=== PATIENT | female | born 1970 | race African-American/Black ===

== ENCOUNTER 2020-08-22 18:38 | Inpatient (IN) | payer OTHER ==
[~2020-08-22] VITALS: Ht 165.1 cm; Wt 106.1 kg
[2020-08-22 19:36] LABS: COLLECTION METHOD CLEAN CATCH
[2020-08-22 19:42] LABS: BASO % 0.1 % (0.0-2.0); GRAN # 9.4 (1.4-6.5); GRAN % 87.1 % (42.2-75.2); HEMATOCRIT 40.9 % (37.0-47.0); HEMOGLOBIN 12.7 g/dl (12.5-16.0); LYMPH # 1.1 (1.2-3.4); LYMPH % 9.7 % (20.0-51.0); MEAN CELL VOLUME 84 fl (80.0-100.0); MEAN CORPUSCULAR HEMOGLOBIN 26 pg (27.0-31.0); MEAN CORPUSCULAR HGB CONC 31 g/dl (33.0-37.0); MEAN PLATELET VOLUME 11.9 fl (7.4-10.4); MONO # 0.3 (0.1-0.6); MONO % 2.6 % (1.7-9.3); PLATELET COUNT 253 K/mm3 (130-400); RED BLOOD COUNT 4.86 M/mm3 (4.10-5.30); REDCELL DISTRIBUTION WIDTH-CV 14.3 % (11.5-14.5)
[2020-08-22 19:47] LABS: MUCOUS Present /lpf; PH 5 (5-8); URINE APPEARANCE Cloudy; URINE BACTERIA Rare /hpf; URINE BILIRUBIN Negative (NEGATIVE); URINE BLOOD 1+ (NEGATIVE); URINE COLOR Yellow; URINE GLUCOSE Negative (NEGATIVE); URINE KETONE Negative (NEGATIVE); URINE LEUKOCYTE ESTERASE 3+ (NEGATIVE); URINE NITRATE Negative (NEGATIVE); URINE PROTEIN(semi-quant) 2+ (NEGATIVE); URINE UROBILINOGEN Negative (NEGATIVE)
[2020-08-22 19:51] LABS: ALANINE AMINOTRANSFERASE 29 U/L (4-34); ALBUMIN 4.2 gm/dL (3.5-5.0); ALKALINE PHOSPHATASE 137 U/L (50-136); ANION GAP 8 mmol/L (7-16); AST,SGOT 50 U/L (15-37); BILIRUBIN,TOTAL 0.4 mg/dL (0.0-1.0); BLOOD UREA NITROGEN 15 mg/dL (7-17); CALCIUM 9.1 mg/dL (8.4-10.2); CARBON DIOXIDE 27 mmol/L (22-30); CHLORIDE 106 mmol/L (98-107); CREATININE, serum 0.93 (0.52-1.25); GLUCOSE 137 mg/dL (74-106); POTASSIUM 3.6 mmol/L (3.4-5.0); SODIUM 142 mmol/L (137-145); TOTAL PROTEIN 7.9 gm/dL (6.4-8.2)
[2020-08-22 20:04] LABS: TROPONIN-I < 0.012 ng/mL (0.000-0.035)
[2020-08-22] MEDS ORDERED: K-TAB20 PO (21:05)
[2020-08-22] MEDS ORDERED: CYANOCOBAL1000 MCG/M IM (21:06)
[2020-08-22] MEDS ORDERED: ATARAX50 MG PO (21:06)
[2020-08-22] MEDS ORDERED: SYNTHROID0.075 MG/T PO (21:07)
[2020-08-22] MEDS ORDERED: CELEXA10 MG PO (21:07)
[2020-08-22] MEDS ORDERED: NORVASC 10MG10 MG PO (21:07)
[2020-08-22] MEDS ORDERED: PRILOSEC 20MG20 MG PO (21:08)
[2020-08-22] MEDS ORDERED: MULTI-VITAMIN W1 TA2 PO (21:09)
[2020-08-22] MEDS ORDERED: DULCOLAX STOOL100 MG PO (21:09)
[2020-08-22 22:16] VITALS: BP 130/89; PULSE 78; TEMP 99
[2020-08-22 23:59] VITALS: BP 158/94; PULSE 80; TEMP 99.4
[2020-08-23 00:11] LABS: ARTERIAL BLD GAS O2 SATURATION 93.4 % (92-100); ARTERIAL BLD GAS TCO2 CT 23.2; ARTERIAL BLOOD GAS BASE EXCESS -2.2 (-2-2); ARTERIAL BLOOD GAS HCO3 22.1 meq/L (22-26); ARTERIAL BLOOD GAS PCO2 36.1 mmHg (35-45); ARTERIAL BLOOD GAS PO2 67.9 mmHg (80-100)
[2020-08-23 03:24] VITALS: PULSE 74; TEMP 100.1
[2020-08-23 05:38] VITALS: BP 143/83; PULSE 70; TEMP 98.8
[2020-08-23 06:49] LABS: BASO % 0.1 % (0.0-2.0); GRAN # 9.7 (1.4-6.5); GRAN % 86.9 % (42.2-75.2); HEMOGLOBIN 10.9 g/dl (12.5-16.0); LYMPH % 9.2 % (20.0-51.0); MEAN CELL VOLUME 84 fl (80.0-100.0); MEAN CORPUSCULAR HEMOGLOBIN 26 pg (27.0-31.0); MEAN CORPUSCULAR HGB CONC 31 g/dl (33.0-37.0); MEAN PLATELET VOLUME 11.6 fl (7.4-10.4); MONO # 0.3 (0.1-0.6); PLATELET COUNT 228 K/mm3 (130-400); RED BLOOD COUNT 4.21 M/mm3 (4.10-5.30); REDCELL DISTRIBUTION WIDTH-CV 14.1 % (11.5-14.5)
[2020-08-23 06:55] LABS: ALBUMIN 3.3 gm/dL (3.5-5.0); BILIRUBIN,TOTAL 0.4 mg/dL (0.0-1.0); CALCIUM 8.5 mg/dL (8.4-10.2); CREATININE, serum 0.73 (0.52-1.25); POTASSIUM 3.7 mmol/L (3.4-5.0); TOTAL PROTEIN 6.7 gm/dL (6.4-8.2)
[2020-08-23 07:10] LABS: HEMATOCRIT 35.5 % (37.0-47.0)
[2020-08-23 07:33] VITALS: BP 154/104; PULSE 79; TEMP 100
--- NOTE | 2020-08-23 11:27 | NUR ---
The patient is positive for COVID. SW attempted to contact the patient's room phone to discuss discharge plan. She did not answer. DEDRA then contacted the patient's , Joseph (ph#[phone]), to complete intake. The patient lives in [place] with Joseph and their 26-year-old daughter and 12-year-old son. He reports independence with ADLs and does not have any DME. The patient's primary care provider is ANA Young and she receives her medications from [facility] in [place]. Joseph reports no difficulties obtaining her meds. The patient does not have a DPOA-HC. Joseph reports that the plan is for the patient to return back home upon discharge. The patient is currently on 4 liters of oxygen. SW to continue to monitor.
--- NOTE | 2020-08-23 12:05 | NUR ---
Chaplain escobedo for patient while standing down the thornton.
[2020-08-23 12:18] VITALS: BP 130/74; PULSE 79; TEMP 99.1
--- NOTE | 2020-08-23 12:50 | NUR ---
THIS NURSE ENTERED ROOM. GENERAL OFFICE WORKER OBTAINING VITALS AT THE BEDSIDE. GENERAL OFFICE WORKER REPORTS THAT THE PATIENT WAS UP TO THE BATHROOM WITHOUT HER OXYGEN ON THE NASAL CANNULA COULDNT REACH TO THE BATHROOM. GENERAL OFFICE WORKER PLACED NASAL CANNULA BACK ON PATIENT. O2 SAT UPON TIME OF ENTRY TO THE ROOM WAS 83%, O2 FLOW TURNED UP. RESIPRATORY THERAPY CALLED. NASAL CANNULA SWITCHED OUT TO OXY MASK AND TURNED TO 12L. OXYGEN SAT INCREASED TO 89-91%. RESPIRATORY THERAPY ENTERED ROOM. OXYMASK EXCHANGED TO A HIGH FLOW HUMIDIFIED NASAL CANNULA AND PATIENT IS NOW SATING AT 92-93% ON 8L. PATIENT GIVEN TYLENOL AND ROBOTUSSIN. PATIENT RESTING IN BED.
[2020-08-23 15:54] VITALS: BP 140/82; PULSE 76; TEMP 98.2
--- NOTE | 2020-08-23 16:32 | NUR ---
DISTRIBUTED GENERATION PROJECT MANAGER NOTIFIED THIS NURSE THAT THE PATIENTS OXYGEN SATURATION WAS 87% ON 10L HIGH FLOW NASAL CANNULA. RT CALLED AND NOTIFIED. OXYGEN INCREASED TO 15L VIA HIGH FLOW NASAL CANNULA. TYLENOL AND ROBOTUSSIN GIVEN FOR CHEST PAIN AND COUGH. O2 SAT CAME UP TO 90-92%.
--- NOTE | 2020-08-23 16:35 | NUR ---
PATIENT O2 SAT UP TO 93-94% ON 15L VIA HIGH FLOW NASAL CANNULA PRIOR TO THIS NURSE LEAVING THE ROOM.
[2020-08-23 19:04] VITALS: BP 146/92; PULSE 82; TEMP 98.5
--- NOTE | 2020-08-23 19:17 | NUR ---
Contacted by PRODUCTION CONTROL SUPERVISOR patient 84% on 15 liters of oxygen. Hospitalist and respiratory contacted. Stat ABG obtain.
[2020-08-23 19:22] LABS: ARTERIAL BLD GAS O2 SATURATION 89.3 % (92-100); ARTERIAL BLD GAS TCO2 CT 22.9; ARTERIAL BLOOD GAS BASE EXCESS -2.2 (-2-2); ARTERIAL BLOOD GAS HCO3 21.8 meq/L (22-26); ARTERIAL BLOOD GAS PO2 54.7 mmHg (80-100); ARTERIAL BLOOD GAS pH 7.41 (7.35-7.45)
--- NOTE | 2020-08-23 21:13 | NUR ---
Updated regarding patient. All questions answered. Denies other needs and questions at this time.
--- NOTE | 2020-08-23 22:35 | NUR ---
Resting in bed. Assessment complete. Lungs clear. Heart sounds normal. Bowels active x4. Pulses present throughout. No edema noted. Right radial site free of complications. INT right AC without complications. Denies pain. Denies needs at this time. Call light in reach.
[2020-08-24] VITALS (9 sets, daily range): BP systolic 128–174; BP diastolic 86–97; PULSE 64–79; TEMP 98.4–100.1
--- NOTE | 2020-08-24 00:08 | NUR ---
Up to restroom and returned to bed. Respiratory in room while patient ambulating. Increased to 50 liters at 90% fiO2. Patient cough and increased work of breath while up. Resolved once laying in bed. Respiratory to adjust airvo as needed.
--- NOTE | 2020-08-24 01:06 | NUR ---
Patient given PRN hydralazine and tylenol at this time. Call light in reach.
--- NOTE | 2020-08-24 02:38 | NUR ---
Patient continues on airvo. Patient requested "something to sleep." VIANEY Acosta ordered melatonin. Given to patient. Also having temps, currently 100.1. Per Karla recheck at 0330 and given ibuprofen if needed. Will monitor.
--- NOTE | 2020-08-24 04:46 | NUR ---
Resting in bed. Denies needs. Call light in reach.
--- NOTE | 2020-08-24 06:20 | NUR ---
Patient remains on airvo at 50 liters and 80% fiO2. Tolerating well. Denies needs this Am. Call light in reach.
[2020-08-24 06:38] LABS: BASO % 0.2 % (0.0-2.0); GRAN # 10.1 (1.4-6.5); GRAN % 87.3 % (42.2-75.2); HEMOGLOBIN 11.1 g/dl (12.5-16.0); LYMPH % 8.3 % (20.0-51.0); MEAN CELL VOLUME 85 fl (80.0-100.0); MEAN CORPUSCULAR HEMOGLOBIN 26 pg (27.0-31.0); MEAN CORPUSCULAR HGB CONC 31 g/dl (33.0-37.0); MEAN PLATELET VOLUME 12.1 fl (7.4-10.4); MONO # 0.4 (0.1-0.6); MONO % 3.5 % (1.7-9.3); PLATELET COUNT 246 K/mm3 (130-400); RED BLOOD COUNT 4.21 M/mm3 (4.10-5.30); REDCELL DISTRIBUTION WIDTH-CV 14.3 % (11.5-14.5)
[2020-08-24 06:39] LABS: HEMATOCRIT 35.6 % (37.0-47.0)
[2020-08-24 06:53] LABS: CALCIUM 8.4 mg/dL (8.4-10.2); CREATININE, serum 0.67 (0.52-1.25); POTASSIUM 3.2 mmol/L (3.4-5.0)
--- NOTE | 2020-08-24 07:04 | NUR ---
Report given to ROSELIA Hannah
--- NOTE | 2020-08-24 10:02 | NUR ---
Patient alert, oriented, appesr drowsy during assessment. Patient refuse breakfast. said she is tired and would like to rest. RN received verbal consent from patient to request for COVID19 result from [facility]. Covid19 faxed in, document filed in patient's chart. Patient resting in bed at this time.
--- NOTE | 2020-08-24 12:31 | NUR ---
Dr Negrete ordered PICC line placement, Type and screen for convalescent plasma transfusion.
--- NOTE | 2020-08-24 12:33 | NUR ---
Received order from Dr Ortiz to start patient on potassium protocol. am k+ level was 3.2. potassium ordered per protocol.
--- NOTE | 2020-08-24 17:25 | NUR ---
Patient report low appetite, offered patient milk shake, patient agreed. milk shake ordered for patient. Patient resting in bed at the moment. patient had an episode of SOB after attempt to walk to the bathroom/bedside commode. O2 sat was 88, saturation improved to 93-94% after patient returned to bed and rested for a while.
--- NOTE | 2020-08-24 17:43 | NUR ---
Dr sterling discontinued tele
--- NOTE | 2020-08-24 20:30 | NUR ---
Initial shift assessment done- states remains SOB with any exertion, now on airvo, 45L.68%,,, sats 94-95%,resting well tonight-cough present- will give cough medicine when time, no other requests, does not want any of her supper but did drink a vanilla shake. PICC to ASHLY.
[2020-08-25] VITALS (9 sets, daily range): BP systolic 120–157; BP diastolic 71–92; PULSE 57–78; TEMP 98.1–98.8
--- NOTE | 2020-08-25 05:17 | NUR ---
Quiet night-- has been resting well tonight-- VSS, o2 sats 97-99% on the airvo 45L,,68%
--- NOTE | 2020-08-25 06:19 | NUR ---
Did get up to bathroom about 30 minutes ago sats are 92% now on the Airvo 45L/68%-
[2020-08-25 06:28] LABS: CALCIUM 8.9 mg/dL (8.4-10.2); CREATININE, serum 0.66 (0.52-1.25); MAGNESIUM 1.8 mg/dL (1.6-2.3); POTASSIUM 3.5 mmol/L (3.4-5.0)
[2020-08-25 06:31] LABS: MEAN CELL VOLUME 84 fl (80.0-100.0); MEAN CORPUSCULAR HEMOGLOBIN 26 pg (27.0-31.0); MEAN CORPUSCULAR HGB CONC 31 g/dl (33.0-37.0); MEAN PLATELET VOLUME 11.4 fl (7.4-10.4); PLATELET COUNT 315 K/mm3 (130-400); RED BLOOD COUNT 4.23 M/mm3 (4.10-5.30); REDCELL DISTRIBUTION WIDTH-CV 14.3 % (11.5-14.5)
[2020-08-25 06:32] LABS: HEMATOCRIT 35.4 % (37.0-47.0)
--- NOTE | 2020-08-25 07:00 | NUR ---
Report received from ROSELIA Segura outside [facility] area, will continue to monitor.
[2020-08-25 07:03] LABS: BAND 1 % (0-10); LYMPHOCYTE 8 % (20.0-51.0); NEUTROPHILS 85 % (42.0-75.2); OVALOCYTES 1+; PLATELET ESTIMATE NORMAL (NORMAL)
--- NOTE | 2020-08-25 10:12 | NUR ---
Pt in bed resting, has little appetite. C/o throat soreness and chest soreness from coughing. Discussed potassium levels and replacement for today. PICC to ASHLY flushes well and good blood return. Will continue to monitor.
--- NOTE | 2020-08-25 16:59 | NUR ---
Started convalescent plasma at this time, discussed s/sx of a transfusion reaction at this time, pt agreeable and verbal consent received with 2nd RN. Pt resting in bed, doing well, denies s/sx of a transfusion reaction. Will remain at bedside for first 15 minutes.
--- NOTE | 2020-08-25 18:07 | NUR ---
Remained at bedsdie for first 15 minutes of infusion. Pt resting in bed tolerating well, PRN pain meds given for headache. Resting quietly, talking off and on phone. VSS. lozenges and robutussin helping with throat soreness. Will give report to nightshift nruse who will resume care.
--- NOTE | 2020-08-25 20:30 | NUR ---
Initial shift assessment done- denies pain tonight- resting quietly- continues on airvo 40L,70%,,sats 93% SOB with any exertion, no requests, pt states overall starting to feel a little better
[2020-08-26 04:30] VITALS: BP 143/70; PULSE 70; TEMP 98.5
--- NOTE | 2020-08-26 05:13 | NUR ---
Queit night- continues on Airvo 40L,70%,-sats 95%
[2020-08-26 08:28] VITALS: BP 135/82; PULSE 63; TEMP 98
--- NOTE | 2020-08-26 09:40 | NUR ---
Assessment completed, alert/oriented, vital signs stable, patient reports still feeling "tight in the chest", lungs diminished with some crackles noted in right lung [place]/ remains on Airvo, heart RRR/ distal pulses are palpable, replacing potassium per protocol, she is eating and drinking some, denies other needs at [facility] time
[2020-08-26 11:39] VITALS: BP 122/79; PULSE 69; TEMP 98.6
[2020-08-26 17:27] VITALS: BP 126/85; PULSE 66; TEMP 98.6
[2020-08-26 19:47] VITALS: BP 131/81; PULSE 67; TEMP 98.7
--- NOTE | 2020-08-26 19:53 | NUR ---
Resting in bed. Assessment complete. Upper lobes clear. Right base diminished with crackles, left base crackles. Dysnpnea with ambulation. Heart sounds normal. Bowels active x4. Pulses present throughout. No edema noted. PICC to right upper flushed without complications. Denies pain. Denies needs at this time. Continues on airvo 40 liters at 62%. Call light in reach.
--- NOTE | 2020-08-26 23:23 | NUR ---
Resting in bed. Denies needs. Call light in reach.
[2020-08-26 23:33] VITALS: BP 136/84; PULSE 58; TEMP 98
--- NOTE | 2020-08-27 01:58 | NUR ---
Resting in bed asleep. Call light in reach.
[2020-08-27 03:35] VITALS: BP 145/88; PULSE 61; TEMP 98
--- NOTE | 2020-08-27 05:58 | NUR ---
Patient had uneventful night. Resting in bed this AM. Continues on airvo at 40 liters and 60% fiO2. Call light in reach.
[2020-08-27 06:16] LABS: HEMOGLOBIN 10.7 g/dl (12.5-16.0); MEAN CELL VOLUME 83 fl (80.0-100.0); MEAN CORPUSCULAR HEMOGLOBIN 26 pg (27.0-31.0); MEAN CORPUSCULAR HGB CONC 31 g/dl (33.0-37.0); MEAN PLATELET VOLUME 12.3 fl (7.4-10.4); PLATELET COUNT 343 K/mm3 (130-400); RED BLOOD COUNT 4.13 M/mm3 (4.10-5.30); REDCELL DISTRIBUTION WIDTH-CV 14.2 % (11.5-14.5)
[2020-08-27 06:20] LABS: HEMATOCRIT 34.2 % (37.0-47.0)
--- NOTE | 2020-08-27 07:07 | NUR ---
Report given to ROSELIA Villalta
[2020-08-27 07:41] VITALS: BP 136/88; PULSE 58; TEMP 98.3
[2020-08-27 07:43] LABS: NEUTROPHILS 81 % (42.0-75.2)
[2020-08-27 07:44] LABS: PLATELET ESTIMATE NORMAL (NORMAL)
[2020-08-27 07:45] LABS: HYPOCHROMIA 1+
[2020-08-27 07:48] LABS: LYMPHOCYTE 15 % (20.0-51.0)
--- NOTE | 2020-08-27 08:15 | NUR ---
trial on 10 lpm with oxymask, 89% on 10 lpm, will trail again at 1400.
--- NOTE | 2020-08-27 08:25 | NUR ---
Pt assessment complete. Pt is laying in bed upon entry, she is A/O x4. Her breathing is currently even and unlabored on Airvo. Reports SOB on exertion has improved. Reports coughing up a lot of phlegm. Denies pain but reports a headache this AM. PICC to RUE sluggish but able to get blood return. No needs at this time. Respiratory therapy at bedside, will continue to monitor.
[2020-08-27 09:38] LABS: CALCIUM 8.6 mg/dL (8.4-10.2); CREATININE, serum 0.73 (0.52-1.25); MAGNESIUM 1.6 mg/dL (1.6-2.3); POTASSIUM 3.2 mmol/L (3.4-5.0)
[2020-08-27 11:26] VITALS: BP 120/84; PULSE 63; TEMP 97.9
--- NOTE | 2020-08-27 12:22 | NUR ---
PATIENT INSTRUCTED ON IS. PULLED 350. THIS RT SET A GOAL FOR HER OF 1000 BY 1400.
[2020-08-27 15:22] VITALS: BP 114/82; PULSE 67; TEMP 98.5
[2020-08-27 18:57] VITALS: BP 116/69; PULSE 69; TEMP 98.6
--- NOTE | 2020-08-27 19:00 | NUR ---
Report received from ROSELIA Villalta. PT in bed resting, will continue to monitor.
--- NOTE | 2020-08-27 21:00 | NUR ---
Assessment charted. PT doing well, feels much better and wants to cnotinue to trial off AIRVO so she can get closer to going home. Lungs are CTA in UL bilaterally, but dimished at bases and RLL fine crackles. PT has PICC to ASHLY. Resting in chair at side of bed, assisted to get up to bathroom and back to bed. Tolerated well. Denies needs, will continue to monitor.
[2020-08-27 23:39] VITALS: BP 122/65; PULSE 64; TEMP 97.8
[2020-08-28] VITALS (7 sets, daily range): BP systolic 108–125; BP diastolic 71–90; PULSE 55–71; TEMP 97.9–98.8
--- NOTE | 2020-08-28 05:29 | NUR ---
Pt awake most of night, unable to rest, PRN tylenol and robutussin provided per request. Otherwise no needs over night, will give report to dayshift nurse who will resume care.
--- NOTE | 2020-08-28 09:09 | NUR ---
yPt assessment complete. Pt sitting in bed upon entry, she is A/O x4. Her breathing is currently even and unlabored on Airvo, she currently denies SOB. SOB on exertion has improved. She reports continued productive cough with clear phlegm. Has had some bloody noses. Denies N/V. States stools are not liquid but loose. Unable to flush purple lumen of PICC, no issues with the red lumen. Denies pain at this time. POC discussed with patient. She denies any needs, call light within reach.
--- NOTE | 2020-08-28 18:51 | NUR ---
Pt did get a little rest today. Reports she feels better than yesterday. Oxygen needs unchanged. Remained afebrile. Robitussin administered for cough and chest congestion. No needs at this time. Call light within reach.
--- NOTE | 2020-08-28 22:56 | NUR ---
Patient laying in bed and watching TV upon enter the room. Patient A/O x4. Patient appears comfortable. Patient geraldo any pain or discomfort. Patient geraldo SOB or dyspnea while at rest. Patient is currently on Airvo 40 L and 49% FIO2. SPO2 94% at 20:44 pm. Breathing even and unlabored. No s/s of respiratory distress noted. Scheduled meds given per order. Patient took medications without any difficulty. Right upper arm PICC site clean/dry/intact. Flushed red lumen with 10ml NS without difficulty. Unalbe to flush purple lumen with NS. Call light within reach. Patient denies any needs at this time.
[2020-08-29 03:20] VITALS: BP 101/68; PULSE 54; TEMP 97.5
--- NOTE | 2020-08-29 06:11 | NUR ---
Patient slept well throughout the shift. No acute distress noted. No s/s of respiratory distress noted. SPO2 97% on Airvo 40L and 49% FiO2 this AM. Call light within reach. Denies any needs at this time.
[2020-08-29 07:40] VITALS: BP 112/80; PULSE 61; TEMP 98.1
--- NOTE | 2020-08-29 08:43 | NUR ---
Pt assessment complete. Pt is sitting in bed upon entry, she is A/O x4. Her breathing is currently even and unlabored on Airvo. Pt denies increased SOB. Does feel a little better than yesterday. Reports continued loose stools. No N/V. Pt encouraged to get up and ambulate, sit up in chair or side of bed and continue to use IS with coughing and deep breathing. Pt denies any pain at this time. POC discussed with patient who verbalizes understanding. No needs at this time. Call light within reach.
[2020-08-29 12:35] VITALS: BP 115/82; PULSE 66; TEMP 98.1
[2020-08-29 16:09] VITALS: BP 96/64; PULSE 79; TEMP 97.3
--- NOTE | 2020-08-29 19:55 | NUR ---
Patient assesed at this time. Alert and oriented x 4, and able to make needs known. Denies having pain and discomfort at this time. PICC to RUE. Denies SOB and dyspnea. LS CTA in upper lobes, diminished in lower. Respirations even and unlabored. on Airvo at 40L 46%. HRR. Capillary refill less than 3 seconds. Non-tenting skin turgor. BSAx4. Abdomen soft and non-tdner. No edema. Voices no questions, needs, or concerns at this time. Resting in bed with call light within reach.
[2020-08-29 20:09] VITALS: BP 114/63; PULSE 67; TEMP 98.5
[2020-08-29 23:44] VITALS: BP 134/85; PULSE 59; TEMP 97.6
[2020-08-30 04:22] VITALS: BP 119/76; PULSE 59; TEMP 98.3
--- NOTE | 2020-08-30 06:18 | NUR ---
Patient has been resting in bed with call light within reach. Has denied having pain and discomfort this shift. Continues on Airvo. Voices no questions, needs, or concerns at this time.
[2020-08-30 06:35] LABS: HEMOGLOBIN 10.3 g/dl (12.5-16.0); MEAN CELL VOLUME 84 fl (80.0-100.0); MEAN CORPUSCULAR HEMOGLOBIN 26 pg (27.0-31.0); MEAN CORPUSCULAR HGB CONC 31 g/dl (33.0-37.0); MEAN PLATELET VOLUME 10.2 fl (7.4-10.4); PLATELET COUNT 410 K/mm3 (130-400); RED BLOOD COUNT 3.93 M/mm3 (4.10-5.30); REDCELL DISTRIBUTION WIDTH-CV 14.2 % (11.5-14.5)
[2020-08-30 06:36] LABS: HEMATOCRIT 32.8 % (37.0-47.0)
[2020-08-30 06:45] LABS: CALCIUM 8.3 mg/dL (8.4-10.2); CREATININE, serum 0.76 (0.52-1.25); POTASSIUM 3.7 mmol/L (3.4-5.0)
[2020-08-30 07:17] LABS: EOSINOPHIL 4 % (0-4); LYMPHOCYTE 23 % (20.0-51.0); METAMYELOCYTE 1 % (0-0); NEUTROPHILS 68 % (42.0-75.2); PLATELET ESTIMATE NORMAL (NORMAL)
--- NOTE | 2020-08-30 07:41 | NUR ---
PATIENT OFF AIRVO2 ATT, ON 5.5 LPM NC, SPO2 90-91%.VO2 ON STANDBY.
[2020-08-30 08:14] VITALS: BP 105/68; PULSE 64
--- NOTE | 2020-08-30 09:00 | NUR ---
PT PLEASANT, AOX4, INDEPENDENT IN ROOM, DENIES PAIN/DISCOMFORT, PT DENIES SOB OR COUGH. PT TOOK PILLS WITH WATER, POTASSIUM REPLACED, VITALS REVIEWED, NO OTHER NEEDS AT THIS TIME. RED PORT FLUSHES BUT DOES NOT GET BLOOD RETURN, PURPLE LINE WILL NOT FLUSH.
[2020-08-30 11:27] VITALS: BP 115/76; PULSE 59; TEMP 98.6
--- NOTE | 2020-08-30 12:58 | NUR ---
Senior Business Development Manager collaborated with RNCarmencita who advised patient has been independent in her room. SW continues to monitor oxygen needs. Patient is currently on 5 liters.
--- NOTE | 2020-08-30 13:27 | NUR ---
Chaplain escobedo for patient while standing outside of door.
--- NOTE | 2020-08-30 14:01 | NUR ---
PATIENT QUALIFIED FOR HOME OXYGEN. NEEDS 3 LPM WHILE AMBULATING, SPO2 92%.
--- NOTE | 2020-08-30 14:33 | NUR ---
PT PURPLE LINE ON PICC PATENT, 10ML OF BLOOD WASTED AND FLUSHED WITH 20ML NS
[2020-08-30 16:25] VITALS: BP 107/72; PULSE 59; TEMP 98.3
--- NOTE | 2020-08-30 18:01 | NUR ---
UNEVENTFUL SHIFT, PT INDEPENDENT IN ROOM, NEIDA WORKED ON PT PURPLE PICC LINE GETTING GOOD BLOOD RETURN. PT PLEASANT, NO C/O PAIN OR DISCOMFORT. NO OTHER NEEDS AT THIS TIME.
--- NOTE | 2020-08-30 19:45 | NUR ---
Patient assessed at this time. Alert and oriented x 4, and able to make needs known. Denies having pain and discomfort at this time. Double lumen PICC to RUE. Dressing to area is CDI. Unable to flush purple port, red port flushed. Denies having SOB and dyspnea, including with exertion. On oxygen at 3 L/min via NC at this time. LS CTA in upper lobes, diminished in lower lobes. Respirations even and unlabored. HRR. Capillary refill less than 3 seconds. Non-tenting skin turgor. BSAx4. Abdomen soft and non-tender. No edema. Voices no questions, needs, or concerns at this time. Resting in bed with call light within reach.
[2020-08-30 20:17] VITALS: BP 129/67; PULSE 69; TEMP 97.7
[2020-08-30 23:46] VITALS: BP 108/67; PULSE 58; TEMP 98.1
[2020-08-31 03:40] VITALS: BP 134/82; PULSE 59; TEMP 98.3
--- NOTE | 2020-08-31 05:42 | NUR ---
Patient has been on oxygen at 3 L/min via NC throughout this shift. Denies having SOB and dyspnea. Voices no questions, needs, or concerns at this time. Resting in bed with call light within reach.
[2020-08-31 08:00] VITALS: BP 125/82; PULSE 82; TEMP 97.8
--- NOTE | 2020-08-31 08:00 | NUR ---
PT PLEASANT, AOX4, INDEPENDENT IN ROOM, EAGER FOR DISCHARGE, CURRENTLY ON 3L NC, REPORTS NO SOB WITH ACTIVITY OR AT REST, ASSESSMENT PERFORMED, VITALS TAKEN AND REVIEWED, MEDICATIONS GIVEN, BREAKFAST BROUGHT INTO ROOM, FRESH ICE WATER BROUGHT TO PT, NO OTHER NEEDS AT THIS TIME.
[2020-08-31] MEDS ORDERED: DECADRON6 MG PO (10:26)
[2020-08-31 11:23] VITALS: BP 125/77; PULSE 67; TEMP 98.3
[2020-08-31] MEDS ORDERED: OXYGEN IH (11:34)
--- NOTE | 2020-08-31 14:54 | NUR ---
pt escorted out via wheelchair with belongings. no other needs. Rachel removed picc line. discharge education provided.
--- NOTE | 2020-08-31 15:15 | NUR ---
Hoist Mechanic contacted patient to discuss setting up home oxygen. SW reviewed DME providers and patient selected [facility]. DEDRA contacted Gena at [facility] and faxed referral/orders. Gena asked if patient's could pickling grader equipment. DEDRA contacted patient's , Joseph who will pickling grader patient today. Joseph advised he would be able to pickling grader equipment. DEDRA provided address and phone number for [facility]. DEDRA contacted Gena to confirm Joseph picked up equipment. No other needs identified at this time. Patient to discharge home today.
== END 2020-08-31 14:56 | disposition home or self-care (01) | DRG 177 ==
LOC: COL.ER 18:38 → MEDICAL 20:17
PROVIDERS: Family Medicine; Internal Medicine; Nurse Practitioner Primary Care; Physician Assistant; Student in an Organized Health Care Education/Training Program; ADMIT Family Medicine
PROC: XW033E5 Introduction of Remdesivir Anti-infective into Peripheral Vein, Percutaneous Approach, New Technology Group 5 (ICD-10-PCS; principal; 2020-08-24)
PROC: 02HV33Z Insertion of Infusion Device into Superior Vena Cava, Percutaneous Approach (ICD-10-PCS; 2020-08-24)
PROC: XW13325 Transfusion of Convalescent Plasma (Nonautologous) into Peripheral Vein, Percutaneous Approach, New Technology Group 5 (ICD-10-PCS; 2020-08-25)
DX: U07.1 COVID-19 (principal); J12.89 Other viral pneumonia; J96.01 Acute respiratory failure with hypoxia; N39.0 Urinary tract infection, site not specified; I10 Essential (primary) hypertension; F41.9 Anxiety disorder, unspecified; F32.9 Major depressive disorder, single episode, unspecified; K21.9 Gastro-esophageal reflux disease without esophagitis; E03.9 Hypothyroidism, unspecified; R19.7 Diarrhea, unspecified; E87.6 Hypokalemia; E83.42 Hypomagnesemia
CPT/HCPCS: 99222-AI; 99232-AI; 99233-AI; 99239; A9284; C1751; J0360; J0696; J1100; J1650; J2405; J2997; J3475; J3480; J7030; J7050; J8540; Q9967

== ENCOUNTER 2020-09-19 12:58 | Emergency (ER) | payer OTHER ==
[~2020-09-19] VITALS: Ht 165.1 cm; Wt 90.9 kg
[~2020-09-19 12:58] MED LIST: ATARAX50 MG PO; CELEXA10 MG PO; CYANOCOBAL1000 MCG/M IM; DECADRON6 MG PO; DULCOLAX STOOL100 MG PO; K-TAB20 PO; MULTI-VITAMIN W1 TA2 PO; NORVASC 10MG10 MG PO; OXYGEN IH; PRILOSEC 20MG20 MG PO; SYNTHROID0.075 MG/T PO
[2020-09-19 13:16] VITALS: TEMP 98.1
[2020-09-19 13:43] LABS: BASO # 0.1 (0.0-0.2); BASO % 0.6 % (0.0-2.0); EOS # 0.3 (0.0-0.7); EOS % 2.1 % (0-4.0); GRAN # 7.1 (1.4-6.5); GRAN % 59.3 % (42.2-75.2); HEMOGLOBIN 10.8 g/dl (12.5-16.0); LYMPH # 3.5 (1.2-3.4); LYMPH % 29.1 % (20.0-51.0); MEAN CELL VOLUME 83 fl (80.0-100.0); MEAN CORPUSCULAR HEMOGLOBIN 26 pg (27.0-31.0); MEAN CORPUSCULAR HGB CONC 32 g/dl (33.0-37.0); MEAN PLATELET VOLUME 10.9 fl (7.4-10.4); MONO % 8.3 % (1.7-9.3); PLATELET COUNT 196 K/mm3 (130-400); RED BLOOD COUNT 4.15 M/mm3 (4.10-5.30); REDCELL DISTRIBUTION WIDTH-CV 15.5 % (11.5-14.5)
[2020-09-19 13:44] LABS: HEMATOCRIT 34.3 % (37.0-47.0)
[2020-09-19 13:53] LABS: ALANINE AMINOTRANSFERASE 36 U/L (4-34); ALBUMIN 3.8 gm/dL (3.5-5.0); ALKALINE PHOSPHATASE 118 U/L (50-136); ANION GAP 5 mmol/L (7-16); AST,SGOT 36 U/L (15-37); BILIRUBIN,TOTAL 0.4 mg/dL (0.0-1.0); BLOOD UREA NITROGEN 16 mg/dL (7-17); CARBON DIOXIDE 27 mmol/L (22-30); CHLORIDE 107 mmol/L (98-107); CREATININE, serum 0.72 (0.52-1.25); GLUCOSE 92 mg/dL (74-106); POTASSIUM 3.6 mmol/L (3.4-5.0); SODIUM 138 mmol/L (137-145)
[2020-09-19 14:09] LABS: TROPONIN-I < 0.012 ng/mL (0.000-0.035)
[2020-09-19] MEDS ORDERED: NORCO 325 MG-51 TAB PO (15:37)
[2020-09-19] MEDS ORDERED: PREDNISONE20 MG PO (15:37)
[2020-09-19 16:12] VITALS: BP 128/94; PULSE 76
== END 2020-09-19 16:12 | disposition home or self-care (01) ==
LOC: COL.ER 12:58
PROVIDERS: Nurse Practitioner Primary Care
DX: R07.81 Pleurodynia (principal); I10 Essential (primary) hypertension; E03.9 Hypothyroidism, unspecified; F41.9 Anxiety disorder, unspecified; F32.9 Major depressive disorder, single episode, unspecified; K21.9 Gastro-esophageal reflux disease without esophagitis; Z86.16 Personal history of COVID-19; Z79.890 Hormone replacement therapy
CPT/HCPCS: J1885; J2270

== ENCOUNTER 2021-03-02 08:55 | Day surgery (SDC) | payer OTHER ==
[2021-03-02] VITALS (13 sets, daily range): BP systolic 141–197; BP diastolic 84–121; PULSE 62–80; TEMP 98.5
[~2021-03-02] VITALS: Ht 165.1 cm; Wt 91.0 kg
[~2021-03-02 08:55] MED LIST changes: +NORCO 325 MG-51 TAB PO; +PREDNISONE20 MG PO
[2021-03-02 09:45] LABS: MEAN CELL VOLUME 80 fl (80.0-100.0); MEAN CORPUSCULAR HGB CONC 30 g/dl (33.0-37.0); MEAN PLATELET VOLUME 11.3 fl (7.4-10.4); PLATELET COUNT 245 K/mm3 (130-400); RED BLOOD COUNT 4.08 M/mm3 (4.10-5.30); REDCELL DISTRIBUTION WIDTH-CV 14.7 % (11.5-14.5)
[2021-03-02 09:47] LABS: PROTHROMBIN TIME 11.4 SECONDS (9.7-12.8)
[2021-03-02 09:48] LABS: HEMATOCRIT 32.7 % (37.0-47.0); HEMOGLOBIN 9.9 g/dl (12.5-16.0); MEAN CORPUSCULAR HEMOGLOBIN 24 pg (27.0-31.0)
[2021-03-02 09:50] LABS: PARTIAL THROMBOPLASTIN TIME 28.9 SECONDS (26.0-37.0)
[2021-03-02 09:51] LABS: CALCIUM 8.8 mg/dL (8.4-10.2); CREATININE, serum 0.59 (0.52-1.25); POTASSIUM 3.7 mmol/L (3.4-5.0)
[2021-03-02] MEDS ORDERED: COREG 25MG25 MG/TAB PO ×2 (09:53→11:20)
[2021-03-02] MEDS ORDERED: PROAIR HFA0.09 MG/AC IH (09:54)
[2021-03-02] MEDS ORDERED: ATARAX50 MG PO (09:56)
[2021-03-02] MEDS ORDERED: TOPAMAX50 MG PO (09:57)
[2021-03-02] MEDS ORDERED: B-12 250 MCG PO (09:58)
[2021-03-02] MEDS ORDERED: ASPIRIN 81M81 MG/TA2 PO (09:59)
[2021-03-02] MEDS ORDERED: IRON 27 MG PO (09:59)
--- NOTE | 2021-03-02 10:20 | NUR ---
PREMEDICATIONS FOR ALLERGY WILL BE GIVEN BY ROSELIA CABRALES IN COLORIST PHOTOGRAPHY. ORSELIA CABRALES STATED SHE WILL PUT IN A VERBAL ORDER GIVEN BY DR FRANCIS TO PROCEED WITH PREMEDICATION.
--- NOTE | 2021-03-02 11:21 | NUR ---
SEE MERGE FOR ALL MEDICATION ADMINISTRATION TIMES, INTRA AND POST SEDATION ASSESSMENTS.
--- NOTE | 2021-03-02 11:22 | NUR ---
AT 0945 I RECEIVED A VERBAL ORDER FROM DR FRANCIS TO GIVE 20 MG PEPCID IV, SOLUMEDROL 125MG IV, AND BENADRYL 50MG IV.
--- NOTE | 2021-03-02 11:46 | NUR ---
REPORT TAKEN FROM ROSELIA CABRALES IN SKIN LAP BONDER. PT DID HAVE HIGH BLOOD PRESSURE BEFORE AND DURING PROCEDURE. WILL CONTINUE TO MONITOR AND WATCH FOR BLEEDING. PT AT BEDSIDE AND ASSISTING WITH ICE CHIPS FOR THE PT.
--- NOTE | 2021-03-02 12:47 | NUR ---
PT VOIDED IN BEDPAN WITH NO COMPLICATIONS. SCANT AMOUNT OF BLOOD ON BANDAGE. RN MARKED AND WILL CONTINUE TO MONITOR.
--- NOTE | 2021-03-02 16:00 | NUR ---
PT DENIES N/V WITH INTAKE. PT VOIDED WITH NO COMPLICATIONS. PT AMBULATING IN AND AROUND PT ROOM WITH ASSISTANCE X1. PT HAS NO HEMATOMA IN RIGHT GROIN. PHYSICIAN WAS NOTIFIED OF BLOOD PRESSURE. IV DISCONTINUED WITH CATHETER TIP INTACT, NO PHLEBITIS OR INFLAMMATION. PT DISCHARGED VIA W/C TO THE CARE OF SPOUSE IN PRIVATE VEHICLE.
== END 2021-03-02 16:30 | disposition home or self-care (01) ==
LOC: COL.CAR 08:55
PROVIDERS: Internal Medicine Cardiovascular Disease
DX: I27.20 Pulmonary hypertension, unspecified (principal); I20.0 Unstable angina; R94.39 Abnormal result of other cardiovascular function study; I10 Essential (primary) hypertension; Z86.16 Personal history of COVID-19; Z20.822 Contact with and (suspected) exposure to COVID-19
CPT/HCPCS: C1760; C1894; J1200; J1644; J2250; J2405; J2930; J3010; Q9967

== ENCOUNTER → 2021-04-07 | Outpatient (CLI) | payer OTHER ==
[~2021-04-07] MED LIST changes: +APRESOLINE 25MG25 MG PO; +ASPIRIN 81M81 MG/TA2 PO; +B-12 250 MCG PO; +BREZTRI AEROS10.7 GM IH; +COREG 25MG25 MG/TAB PO; +COREG 6.256.25 MG/TA PO; +IRON 27 MG PO; +PAMELOR 25MG25 MG PO; +PRINZIDE 25 MG-1 TAB PO; +PROAIR HFA0.09 MG/AC IH; +TIROSINT75 MC1 PO; +TOPAMAX50 MG PO; +VITAMIN B122500 MCG SL
== END ==
LOC: COL.PUL 12:48
DX: R06.02 Shortness of breath (principal)
CPT/HCPCS: J7674

== ENCOUNTER 2021-04-15 07:29 | Day surgery (SDC) | payer OTHER ==
[~2021-04-15] VITALS: Ht 165.1 cm; Wt 121.7 kg
[~2021-04-15 07:29] MED LIST changes: -APRESOLINE 25MG25 MG PO; -BREZTRI AEROS10.7 GM IH; -COREG 6.256.25 MG/TA PO; -PAMELOR 25MG25 MG PO; -PRINZIDE 25 MG-1 TAB PO; -TIROSINT75 MC1 PO; -VITAMIN B122500 MCG SL
[2021-04-15 11:00] VITALS: BP 161/98; PULSE 53; TEMP 97.9
[2021-04-15] MEDS ORDERED: COREG 25MG25 MG/TAB PO (11:06)
[2021-04-15] MEDS ORDERED: NORVASC 10MG10 MG PO (11:07)
[2021-04-15] MEDS ORDERED: PRINZIDE 25 MG-1 TAB PO (11:08)
[2021-04-15 12:40] VITALS: BP 152/102; PULSE 61; TEMP 98.4
--- NOTE | 2021-04-15 12:40 | NUR ---
Patient returned to room on cart, alert and oriented. Cart put in room for patient comfort. Postop vital signs started. Patient is on 4L O2 at home and will be dishcarged with personal O2 supply. Patient is tearful and complains of general body pain, but does not want medication. Warm blanket provided for comfort. Agrees to try coffee and muffin. Blood pressure is 152/102, report to anesthia per endo staff, no new orders. Will continue to monitor.
--- NOTE | 2021-04-15 12:48 | NUR ---
Dr. fleming to speak with patient.
[2021-04-15 12:55] VITALS: BP 137/99; PULSE 58
--- NOTE | 2021-04-15 12:55 | NUR ---
Patient low españa, alert and oriented. Vital signs stable. Tolerating food and drink well. Will continue to monitor.
[2021-04-15 13:10] VITALS: BP 156/101; PULSE 61
--- NOTE | 2021-04-15 13:10 | NUR ---
Patient low españa in bed. Vital signs consistent with preop vitals. Tolerating food and drink well. Reviewed D/C instructions, verbalized understanding. Reconnected patient to home supply of O2, instructed to use call light if needing help dressing and when ready for transfer to vehicle. D/C IV with no complications.
--- NOTE | 2021-04-15 13:40 | NUR ---
transfered patient in wheel chair with O2 to personal vehicle, did not want assistance.
== END 2021-04-15 13:40 | disposition home or self-care (01) ==
LOC: SDCO 07:29
DX: R14.0 Abdominal distension (gaseous) (principal); R10.9 Unspecified abdominal pain; K59.00 Constipation, unspecified; E03.9 Hypothyroidism, unspecified; G43.909 Migraine, unspecified, not intractable, without status migrainosus; R05 Cough; F32.9 Major depressive disorder, single episode, unspecified; F32.89 Other specified depressive episodes; Z79.82 Long term (current) use of aspirin; Z79.899 Other long term (current) drug therapy; Z79.890 Hormone replacement therapy; Z20.822 Contact with and (suspected) exposure to COVID-19; Z98.84 Bariatric surgery status; Z90.89 Acquired absence of other organs
CPT/HCPCS: J2704; J7030; Q9967

== ENCOUNTER → 2021-04-29 | Outpatient (CLI) | payer OTHER ==
[~2021-04-29] MED LIST changes: +APRESOLINE 25MG25 MG PO; +BREZTRI AEROS10.7 GM IH; +COREG 6.256.25 MG/TA PO; +PAMELOR 25MG25 MG PO; +PRINZIDE 25 MG-1 TAB PO; +TIROSINT75 MC1 PO; +VITAMIN B122500 MCG SL
== END ==
LOC: COL.LAB 12:32 → COL.RAD 12:32
DX: I51.7 Cardiomegaly (principal)
CPT/HCPCS: Q9967

== ENCOUNTER → 2021-05-19 | Outpatient (CLI) | payer OTHER | LOC: COL.VAS 12:48 | DX: I35.1 Nonrheumatic aortic (valve) insufficiency (principal) ==

== ENCOUNTER 2021-07-27 01:48 | Observation (INO) | payer OTHER ==
[~2021-07-27] VITALS: Ht 165.1 cm; Wt 119.0 kg
[~2021-07-27 01:48] MED LIST changes: -APRESOLINE 25MG25 MG PO; -BREZTRI AEROS10.7 GM IH; -COREG 6.256.25 MG/TA PO; -PAMELOR 25MG25 MG PO; -TIROSINT75 MC1 PO; -VITAMIN B122500 MCG SL
[2021-07-27] MEDS ORDERED: APRESOLINE 25MG25 MG PO (02:08)
[2021-07-27] MEDS ORDERED: TIROSINT75 MC1 PO (02:09)
[2021-07-27] MEDS ORDERED: PAMELOR 25MG25 MG PO (02:10)
[2021-07-27] MEDS ORDERED: BREZTRI AEROS10.7 GM IH (02:11)
[2021-07-27] MEDS ORDERED: PROAIR HFA0.09 MG/AC IH (02:12)
[2021-07-27 02:13] LABS: BASO # 0.1 K/mm3 (0.0-0.2); BASO % 1.2 % (0.0-2.0); EOS # 0.3 K/mm3 (0.0-0.7); EOS % 3.2 % (0-4.0); GRAN # 4.2 K/mm3 (1.4-6.5); GRAN % 52.5 % (42.2-75.2); HEMOGLOBIN 10.6 g/dl (12.5-16.0); LYMPH # 2.8 K/mm3 (1.2-3.4); LYMPH % 34.2 % (20.0-51.0); MEAN CELL VOLUME 81 fl (80.0-100.0); MEAN CORPUSCULAR HEMOGLOBIN 25 pg (27.0-31.0); MEAN CORPUSCULAR HGB CONC 31 g/dl (33.0-37.0); MEAN PLATELET VOLUME 11.1 fl (7.4-10.4); MONO # 0.7 K/mm3 (0.1-0.6); MONO % 8.7 % (1.7-9.3); PLATELET COUNT 319 K/mm3 (130-400); RED BLOOD COUNT 4.22 M/mm3 (4.10-5.30)
[2021-07-27 02:14] LABS: HEMATOCRIT 34.3 % (37.0-47.0)
[2021-07-27 02:32] LABS: ALBUMIN 3.9 gm/dL (3.5-5.0); BILIRUBIN,TOTAL 0.3 mg/dL (0.2-1.2); CALCIUM 9.4 mg/dL (8.4-10.2); CREATININE, serum 1.67 mg/dL (0.57-1.11); POTASSIUM 3.3 mmol/L (3.5-4.5); TOTAL PROTEIN 7.7 gm/dL (6.2-8.1)
[2021-07-27 02:38] LABS: TROPONIN-I 0.014 ng/mL (0.00-0.033)
[2021-07-27 08:24] LABS: BASO # 0.1 K/mm3 (0.0-0.2); BASO % 0.9 % (0.0-2.0); EOS # 0.2 K/mm3 (0.0-0.7); GRAN # 3.9 K/mm3 (1.4-6.5); GRAN % 58.9 % (42.2-75.2); HEMATOCRIT 31.8 % (37.0-47.0); HEMOGLOBIN 9.8 g/dl (12.5-16.0); LYMPH % 29.8 % (20.0-51.0); MEAN CELL VOLUME 81 fl (80.0-100.0); MEAN CORPUSCULAR HEMOGLOBIN 25 pg (27.0-31.0); MEAN CORPUSCULAR HGB CONC 31 g/dl (33.0-37.0); MEAN PLATELET VOLUME 10.9 fl (7.4-10.4); MONO # 0.5 K/mm3 (0.1-0.6); MONO % 7.2 % (1.7-9.3); PLATELET COUNT 275 K/mm3 (130-400); RED BLOOD COUNT 3.91 M/mm3 (4.10-5.30); REDCELL DISTRIBUTION WIDTH-CV 16.1 % (11.5-14.5)
[2021-07-27 08:43] LABS: ANION GAP 10 mmol/L (7-16); BLOOD UREA NITROGEN 18 mg/dL (10-20); CARBON DIOXIDE 24 mmol/L (22-29); CHLORIDE 106 mmol/L (98-107); GLUCOSE 124 mg/dL (70-99); POTASSIUM 3.7 mmol/L (3.5-4.5); SODIUM 140 mmol/L (136-145)
[2021-07-27 08:50] LABS: TROPONIN-I 6 HR POST INITIAL < 0.010 ng/mL (0.00-0.033)
[2021-07-27 17:30] VITALS: BP 141/90; PULSE 72; TEMP 98.1
[2021-07-27] MEDS ORDERED: VITAMIN B122500 MCG SL (18:11)
[2021-07-27 21:25] VITALS: BP 138/84; PULSE 73; TEMP 98.5
[2021-07-28 00:14] VITALS: BP 146/86; PULSE 59; TEMP 97.9
[2021-07-28 05:10] VITALS: BP 149/90; PULSE 64; TEMP 97.6
[2021-07-28 06:53] LABS: BASO # 0.1 K/mm3 (0.0-0.2); BASO % 1.3 % (0.0-2.0); EOS # 0.2 K/mm3 (0.0-0.7); EOS % 3.6 % (0-4.0); GRAN # 2.5 K/mm3 (1.4-6.5); LYMPH % 38.5 % (20.0-51.0); MEAN CELL VOLUME 84 fl (80.0-100.0); MEAN CORPUSCULAR HGB CONC 30 g/dl (33.0-37.0); MEAN PLATELET VOLUME 11.1 fl (7.4-10.4); MONO # 0.5 K/mm3 (0.1-0.6); MONO % 9.4 % (1.7-9.3); PLATELET COUNT 275 K/mm3 (130-400); RED BLOOD COUNT 3.88 M/mm3 (4.10-5.30); REDCELL DISTRIBUTION WIDTH-CV 16.3 % (11.5-14.5)
[2021-07-28 06:54] LABS: HEMATOCRIT 32.6 % (37.0-47.0); HEMOGLOBIN 9.8 g/dl (12.5-16.0); MEAN CORPUSCULAR HEMOGLOBIN 25 pg (27.0-31.0)
[2021-07-28 07:12] LABS: CALCIUM 9.2 mg/dL (8.4-10.2); CREATININE, serum 0.99 mg/dL (0.57-1.11); POTASSIUM 3.6 mmol/L (3.5-4.5)
[2021-07-28 08:00] VITALS: BP 119/53; PULSE 69
--- NOTE | 2021-07-28 09:30 | NUR ---
ASSESSMENT COMPLETE. PT COOPERTIVE WITH CARES. PT RESTING IN BED WITH HER BY HER SIDE. PT STATES SHE HAS PAIN IN HER ABD AND LEGS. TYLENOL GIVEN. PT STATES THE TYLENOL DIDN'T DO TOO MUCH FOR HER PAIN, BUT SHE DON'T WANT ANYTHING ELSE FOR THE PAIN BECAUSE IT'S PAIN SHE HAS ALL THE TIME AND SHE JUST LIVES WITH IT. I ASKED PT WAS SHE SURE. PT STATES YES. PT ALSO STATED SHE HAS DIZZINESS AT REST. PT STATES THE DIZZINESS IS RELATED TO HER LONG COVID SYMPTOMS. PT EXCITED TO BE GOING HOME TODAY. PT STATES SHE HAS NO OTHER NEEDS AT THIS TIME. CALL LIGHT WITHIN REACH.
[2021-07-28] MEDS ORDERED: COREG 6.256.25 MG/TA PO (10:02)
--- NOTE | 2021-07-28 10:10 | NUR ---
Pouncing Lathe Operator attended clinical rounds with the team and patient will be discharged home today. SW met with patient to discuss discharge planning. Patient lives in [place] with her , Joseph (ph#[phone]) and sees Ana PEREZ for primary care. Patient obtains medications from [facility] with no difficulties. Patient has home oxygen from [facility] and also reports she has a cane and walker that was given to her. Patient states she is mostly independent with ADLS however sometimes has assistance from her depending on how she feels. Patient was interested in grab bars and tub transfer bench. SW provided education on where these items can be purchased at. Patient states she does not have Advance Directives at this time because her knows what to do if she were unable to make her own medical decisions. Patient plans to return home today with her family. Discharge Plan: Home
--- NOTE | 2021-07-28 10:19 | NUR ---
PT 100% ON RA, O2 TURNED OFF AT THIS TIME, PT REPORTS ONLY NEEDING IT WITH EXERTION.
--- NOTE | 2021-07-28 11:45 | NUR ---
First visit from the cut press operator. No needs right now.
--- NOTE | 2021-07-28 14:48 | NUR ---
PT DISCHARGED HOME. PT'S IV REMOVED, IV CATHETER INTACT. PT REMOVED FROM TELE. I WENT OVER DISCHARGE PAPERWORK WITH PT AND ANSWERED ANY QUESTIONS SHE HAD. PT DENIED PALPITATIONS OR DIZZINESS. PT STATED SHE HAD THE SAME ARTHRITIS PAIN SHE'S BEING LIVING WITH. PT DENIES NEED FOR PAIN MEDICATION, JUST READY TO GO HOME. PT STATES SHE HAS NO OTHER NEEDS AT THIS TIME. PT ESCORTED OUT BY ROSELIA HUDSON VIA WHEELCHAIR WITH O2. PT WAS ALSO ACCOMPANIED BY HER .
== END 2021-07-28 14:45 | disposition home or self-care (01) ==
LOC: COL.ER 01:48 → MEDICAL 03:07
PROVIDERS: Student in an Organized Health Care Education/Training Program; ADMIT Internal Medicine
DX: I95.9 Hypotension, unspecified (principal); I10 Essential (primary) hypertension; R07.9 Chest pain, unspecified; N17.9 Acute kidney failure, unspecified; E87.6 Hypokalemia; J96.11 Chronic respiratory failure with hypoxia; R05.3 Chronic cough; E03.9 Hypothyroidism, unspecified; K21.9 Gastro-esophageal reflux disease without esophagitis; G31.84 Mild cognitive impairment of uncertain or unknown etiology; U09.9 Post COVID-19 condition, unspecified; F41.9 Anxiety disorder, unspecified; F32.A Depression, unspecified; Z90.89 Acquired absence of other organs; Z79.899 Other long term (current) drug therapy; Z79.890 Hormone replacement therapy; Z99.89 Dependence on other enabling machines and devices
CPT/HCPCS: G0378; J1644; J7030

== ENCOUNTER 2021-08-29 14:12 | Emergency (ER) | payer OTHER ==
[~2021-08-29] VITALS: Ht 165.1 cm; Wt 122.7 kg
[~2021-08-29 14:12] MED LIST changes: +APRESOLINE 25MG25 MG PO; +BREZTRI AEROS10.7 GM IH; +COREG 6.256.25 MG/TA PO; +PAMELOR 25MG25 MG PO; +TIROSINT75 MC1 PO; +VITAMIN B122500 MCG SL
[2021-08-29] MEDS ORDERED: MEDROL 4MG DOSPA4 MG PO (14:54)
[2021-08-29 15:17] VITALS: BP 146/102; PULSE 56; TEMP 98.1
== END 2021-08-29 15:18 | disposition home or self-care (01) ==
LOC: COL.ER 14:12
DX: I80.9 Phlebitis and thrombophlebitis of unspecified site (principal); Z86.16 Personal history of COVID-19; Z98.84 Bariatric surgery status

== ENCOUNTER → 2021-12-07 | Outpatient (CLI) | payer OTHER ==
[~2021-12-07] MED LIST changes: +MEDROL 4MG DOSPA4 MG PO
== END ==
LOC: COL.RAD 12-05 10:30
DX: I12.9 Hypertensive chronic kidney disease with stage 1 through stage 4 chronic kidney disease, or unspecified chronic kidney disease (principal); N18.9 Chronic kidney disease, unspecified

== ENCOUNTER → 2022-02-14 | Outpatient (CLI) | payer OTHER | LOC: COL.RAD 09:52 | DX: K76.0 Fatty (change of) liver, not elsewhere classified (principal); Z90.49 Acquired absence of other specified parts of digestive tract ==

== ENCOUNTER 2022-05-13 14:03 | Emergency (ER) | payer SELFPAY ==
[~2022-05-13] VITALS: Ht 165.1 cm; Wt 111.4 kg
[2022-05-13 14:13] VITALS: TEMP 97.9
[2022-05-13 15:29] LABS: COLLECTION METHOD CLEAN CATCH
[2022-05-13 15:32] LABS: BASO # 0.1 K/mm3 (0.0-0.2); BASO % 1.2 % (0.0-2.0); EOS # 0.4 K/mm3 (0.0-0.7); EOS % 5.1 % (0.0-4.0); GRAN # 3.9 K/mm3 (1.4-6.5); GRAN % 53.9 % (42.2-75.2); HEMOGLOBIN 10.5 g/dl (12.5-16.0); LYMPH # 2.5 K/mm3 (1.2-3.4); LYMPH % 33.8 % (20.0-51.0); MEAN CELL VOLUME 79 fl (80.0-100.0); MEAN CORPUSCULAR HEMOGLOBIN 25 pg (27-31); MEAN CORPUSCULAR HGB CONC 31 g/dl (33.0-37.0); MEAN PLATELET VOLUME 11.4 fl (7.4-10.4); MONO # 0.4 K/mm3 (0.1-0.6); MONO % 5.9 % (1.7-9.3); PLATELET COUNT 262 K/mm3 (130-400); RED BLOOD COUNT 4.29 M/mm3 (4.10-5.30); REDCELL DISTRIBUTION WIDTH-CV 16.7 % (11.5-14.5)
[2022-05-13 15:33] LABS: HEMATOCRIT 33.8 % (37.0-47.0)
[2022-05-13] MEDS ORDERED: COREG 25MG25 MG/TAB PO (15:37)
[2022-05-13 15:39] LABS: PH 7.5 (5.0-8.5); URINE APPEARANCE Clear (CLEAR/HAZY); URINE COLOR Yellow (YELLOW)
[2022-05-13 15:40] LABS: URINE BLOOD Negative (NEGATIVE); URINE GLUCOSE Negative (NEGATIVE); URINE KETONE Negative (NEGATIVE); URINE NITRATE Negative (NEGATIVE); URINE PROTEIN(semi-quant) Negative (NEGATIVE)
[2022-05-13 15:42] LABS: SQUAMOUS EPITHELIAL 0-2 /hpf (0-10); URINE BACTERIA Rare /hpf (NONE SEEN); URINE RBC None Seen /hpf (0-2)
[2022-05-13] MEDS ORDERED: PAMELOR50 MG PO (15:42)
[2022-05-13] MEDS ORDERED: HCTZ 25MG TAB25 MG PO (15:43)
[2022-05-13 15:48] LABS: ALBUMIN 3.8 gm/dL (3.5-5.0); BILIRUBIN,TOTAL 0.2 mg/dL (0.2-1.2); CALCIUM 8.7 mg/dL (8.4-10.2); CREATININE, serum 0.9 mg/dL (0.57-1.11); POTASSIUM 3.4 mmol/L (3.5-4.5); TOTAL PROTEIN 7.6 gm/dL (6.2-8.1)
[2022-05-13 15:54] LABS: TROPONIN-I 0.019 ng/mL (0.00-0.033)
[2022-05-13 16:07] VITALS: BP 156/106; PULSE 82
[2022-05-13 16:08] LABS: TSH w REFLEX 37.156 uIU/mL (0.350-4.940)
== END 2022-05-13 16:07 | disposition home or self-care (01) ==
LOC: COL.ER 14:03
PROVIDERS: Emergency Medicine
DX: I10 Essential (primary) hypertension (principal); Z86.16 Personal history of COVID-19
CPT/HCPCS: J0360

== ENCOUNTER → 2023-09-07 | Outpatient (CLI) | payer MEDICARE, OTHER ==
[~2023-09-07] MED LIST changes: +HCTZ 25MG TAB25 MG PO; +PAMELOR50 MG PO; +ZITHROMAX Z PA250 MG PO
[2023-09-13 16:09] LABS: KAPPA FREE LIGHT CHAIN-SERUM 56.4 mg/L (3.3-19.4); KAPPA LAMBDA RATIO 2.09 (())
== END ==
LOC: COL.LAB 11:53
PROVIDERS: Nurse Practitioner
DX: D47.2 Monoclonal gammopathy (principal)

== ENCOUNTER → 2023-10-05 | Outpatient (CLI) | payer MEDICARE ==
[~2023-10-05] MED LIST changes: +Gadoterate 20 ML VIAL IV ONE
== END ==
LOC: COL.RAD 12:14
DX: M47.816 Spondylosis without myelopathy or radiculopathy, lumbar region (principal); M47.817 Spondylosis without myelopathy or radiculopathy, lumbosacral region; M47.812 Spondylosis without myelopathy or radiculopathy, cervical region; R90.82 White matter disease, unspecified; G62.9 Polyneuropathy, unspecified; R53.83 Other fatigue; R89.9 Unspecified abnormal finding in specimens from other organs, systems and tissues; R41.89 Other symptoms and signs involving cognitive functions and awareness
CPT/HCPCS: A9575

== ENCOUNTER 2024-03-28 06:10 | Day surgery (SDC) | payer MEDICARE ==
[~2024-03-28] VITALS: Ht 165.1 cm; Wt 97.9 kg
[~2024-03-28 06:10] MED LIST changes: -Gadoterate 20 ML VIAL IV ONE; -IRON 27 MG PO; +LR 1,000 ML IV SCH; +NATURAL IRON65 MG PO; +Ondansetron 4 MG/2 ML VIAL IV PRN
[2024-03-28 06:28] VITALS: BP 147/96; PULSE 71; TEMP 97.3
[2024-03-28] MEDS ORDERED: SYNTHROID0.2 MG/TAB PO (06:43)
[2024-03-28] MEDS ORDERED: IMDUR 60MG60 MG/TAB PO (06:43)
[2024-03-28] MEDS ORDERED: WEGOVY0.5 MG/0.5 SQ (06:44)
[2024-03-28] MEDS ORDERED: AMBIEN 5MG TABLE5 MG PO (06:45)
[2024-03-28] MEDS ORDERED: ZOLOFT 100MG100 MG PO (06:45)
--- NOTE | 2024-03-28 06:57 | NUR ---
The patient ambulated back to [place] [address] using her cane with a slow, steady gait. The patient appears alert and oriented and denies any pain or nausea at this time. Vital signs obtained. Consent signed. 20G IV started in right hand with one stick, LR infusing without difficulty. Assessment completed. Home medicaitons reconcilled. Warm blanket provided. , Joseph, brought back to be at her bedside. Denies any further needs.
[2024-03-28] MEDS ORDERED: Lidocaine PF 2% (20 MG/ML) 5 ML VIAL ONE (07:30)
[2024-03-28 08:20] VITALS: BP 132/84; PULSE 67; TEMP 96.6
[2024-03-28 08:30] VITALS: BP 131/82; PULSE 66
[2024-03-28 08:45] VITALS: BP 137/98; PULSE 67
--- NOTE | 2024-03-28 09:14 | NUR ---
0820- PT RETURNS FROM ENDO PROCEDURE VIA CART AND RN ASSIST TO GI BAY 3. PT AMBULATES FROM CART TO RECLINER WITH ASSIST. MONITORS ON AND ALARMS SET. CALL LIGHT WITHIN REACH. REPORT RECEIVED FROM ROSELIA BOSCH. PT DENIES ANY PAIN OR NAUSEA. 0830- PT TAKING FOOD AND DRINK WELL. NO COMPLICATIONS NOTED. 0855- DISCHARGE INSTRUCTIONS GIVEN TO PT. ALL QUESTIONS ANSWERED. 0900- PT TRANSFERRED OUT OF THE HOSPITAL VIA WHEELCHAIR TAKEN BY AID.
== END 2024-03-28 09:00 | disposition home or self-care (01) ==
LOC: SDCO 06:10
DX: Z12.11 Encounter for screening for malignant neoplasm of colon (principal); D12.4 Benign neoplasm of descending colon; K57.30 Diverticulosis of large intestine without perforation or abscess without bleeding; I51.7 Cardiomegaly; D47.2 Monoclonal gammopathy; Z98.84 Bariatric surgery status
CPT/HCPCS: J2704; J7120

== ENCOUNTER 2024-04-04 05:33 | Day surgery (SDC) | payer MEDICARE ==
[~2024-04-04] VITALS: Ht 165.1 cm; Wt 97.2 kg
[~2024-04-04 05:33] MED LIST changes: +AMBIEN 5MG TABLE5 MG PO; +IMDUR 60MG60 MG/TAB PO; -LR 1,000 ML IV SCH; +SYNTHROID0.2 MG/TAB PO; +WEGOVY0.5 MG/0.5 SQ; +ZOLOFT 100MG100 MG PO
[2024-04-04 05:54] VITALS: BP 141/95; PULSE 78; TEMP 96.8
[2024-04-04] MEDS ORDERED: LR 1,000 ML IV SCH (06:00)
--- NOTE | 2024-04-04 06:18 | NUR ---
Pt arrived with for procedure, VSS and WNL, RR even and unlabored; reviewed meds/pharm/allergies/history and updated, reviewed and signed consents, no questions/concerns; 20G IV to RH, flushes well, LR hanging.
[2024-04-04 07:20] VITALS: BP 132/84; PULSE 80; TEMP 97.5
[2024-04-04 07:30] VITALS: BP 142/90; PULSE 86
--- NOTE | 2024-04-04 08:12 | NUR ---
0720- PATIENT BACK FROM ENDO PROCEDURE TO BAY 1 BY CART. MONITORS AND ALARMS SET. PATIENT RESTING IN CHAIR. REQUESTED FOOD AND DRINK. 0730- PATIENT TAKING FOOD AND DRINK WELL. NO COMPLICATIONS. 0800- DISCHARGE INSTRUCTIONS GIVEN. ALL QUESTIONS ANSWERED. 0810- PATIENT TRANSFERRED OUT VIA WHEELCHAIR TAKEN TO CAR BY AID. DRIVING CAR.
== END 2024-04-04 08:10 | disposition home or self-care (01) ==
LOC: SDCO 05:33
DX: R07.9 Chest pain, unspecified (principal); R10.13 Epigastric pain; Z98.84 Bariatric surgery status
CPT/HCPCS: J2704; J7120

== ENCOUNTER 2024-05-26 17:16 | Observation (INO) | payer MEDICARE ==
[~2024-05-26] VITALS: Ht 165.1 cm; Wt 84.2 kg
[~2024-05-26 17:16] MED LIST changes: -Ondansetron 4 MG/2 ML VIAL IV PRN
[2024-05-26 18:01] LABS: BASO # 0.1 K/mm3 (0.0-0.2); BASO % 1.2 % (0.0-2.0); EOS # 0.2 K/mm3 (0.0-0.7); GRAN # 3.5 K/mm3 (1.4-6.5); HEMOGLOBIN 11.7 g/dl (12.5-16.0); LYMPH # 2.1 K/mm3 (1.2-3.4); LYMPH % 31.3 % (20.0-51.0); MEAN CELL VOLUME 79 fl (80.0-100.0); MEAN CORPUSCULAR HEMOGLOBIN 25 pg (27-31); MEAN CORPUSCULAR HGB CONC 32 g/dl (33.0-37.0); MEAN PLATELET VOLUME 11.3 fl (7.4-10.4); MONO # 0.8 K/mm3 (0.1-0.6); MONO % 12.2 % (1.7-9.3); PLATELET COUNT 280 K/mm3 (130-400); RED BLOOD COUNT 4.66 M/mm3 (4.10-5.30); REDCELL DISTRIBUTION WIDTH-CV 14.3 % (11.5-14.5)
[2024-05-26 18:20] LABS: ALBUMIN 3.7 g/dL (3.5-5.0); BILIRUBIN,TOTAL 0.4 mg/dL (0.2-1.2); CALCIUM 9.7 mg/dL (8.4-10.2); CREATININE, serum 1.17 mg/dL (0.57-1.11); MAGNESIUM 2.2 mg/dL (1.6-2.6); TOTAL PROTEIN 7.6 g/dl (6.2-8.1)
[2024-05-26 18:31] LABS: POTASSIUM 2.1 mEq/L (3.5-4.5)
[2024-05-26] MEDS ORDERED: Acetaminophen 325 MG TAB PO PRN (19:00)
[2024-05-26] MEDS ORDERED: Potassium Bicarbonate/Citrate 20 MEQ Effervescent TAB PO SCH (19:00)
[2024-05-26] MEDS ORDERED: *Potassium Replacement Protocol MC SCH (19:00)
[2024-05-26] MEDS ORDERED: APRESOLINE 25MG25 MG PO (20:43)
[2024-05-26] MEDS ORDERED: LYRICA 75MG CAP75 MG PO (20:44)
[2024-05-26] MEDS ORDERED: JARDIANCE10 (20:47)
[2024-05-26 21:00] VITALS: BP_SYST 114
--- NOTE | 2024-05-26 21:00 | NUR ---
PATIENT ADMITTED TO ROOM 357 BROUGHT UP IN WHEELCHAIR BY JEWELRY ESTIMATOR, ACCOMPANIED BY FAMILY. TELE IN PLACE. VS ARE 113/89 BP, 99% ON RA, 71 PULSE AND 18 RR. THERMOMETER NOT WORKING WILL REASESS TEMP. HOSPITAIST, CLEMENCIA BEDSIDE. EFFER-K 20 meQ GIVEN. PATIENT ORIENTED TO ROOM.
[2024-05-26 21:08] VITALS: BP 126/74; PULSE 59
[2024-05-26] MEDS ORDERED: CYANOCOBAL1000 MCG/1 IM (21:43)
[2024-05-26] MEDS ORDERED: VITAMIN D 50,1.25 MG PO (21:44)
[2024-05-26] MEDS ORDERED: TYLENOL W/COD1 UDTAB PO (21:46)
[2024-05-26] MEDS ORDERED: IMDUR 30MG30 MG/TAB PO (21:47)
[2024-05-26] MEDS ORDERED: NORVASC 5MG5 MG/TAB PO (21:48)
[2024-05-26] MEDS ORDERED: EMGALITY120 MG/1 M SQ (21:49)
[2024-05-26] MEDS ORDERED: SYNTHROID 0.0.025 MG PO (21:50)
[2024-05-26] MEDS ORDERED: COLACE 100100 MG/CAP PO (21:53)
[2024-05-26] MEDS ORDERED: Docusate Sodium 100 MG CAP PO PRN (22:00)
--- NOTE | 2024-05-26 22:43 | NUR ---
RT BEDSIDE OFFERING ORAL SUCTION, ABG AND BREATHING TREATMENT.
--- NOTE | 2024-05-26 23:40 | NUR ---
MED REC COMPLETE PATIENT C/O STONE, PRN TYLENOL ADMINISTERED.
[2024-05-26] MEDS ORDERED: Sertraline 100 MG TAB PO SCH (23:45)
[2024-05-26] MEDS ORDERED: Pregabalin 75 MG CAP PO SCH (23:45)
[2024-05-27] VITALS (9 sets, daily range): BP systolic 109–160; BP diastolic 70–97; PULSE 65–81; TEMP 97.2–98.6
[2024-05-27 02:26] LABS: CALCIUM 9.2 mg/dL (8.4-10.2); CREATININE, serum 0.94 mg/dL (0.57-1.11)
[2024-05-27 02:40] LABS: POTASSIUM 2.3 mEq/L (3.5-4.5)
--- NOTE | 2024-05-27 02:50 | NUR ---
CALL PLACED TO HOSPIITALISTCLEMENCIA WITH CRITICAL LAB K+2.3 TORB TO BEGIN IV REPLACEMENT, ALSO, PATIENT C/O ."SOMETHING CAUGHT IN MY THROAT." VISUAL INSPECTION SHOWED NO OBSTRUCTION, LUNG SOUNDS CLEAR. VS ARE 100% O2 ON RA, BP 154/100BP, PULSE 84. PATIENT VMMITED SMALL AMOUNT OF CLEAR FLUID. SHE CONNTINUES TO BELCH, BUT STATES SOME RELIEF. TORB FOR COMPAZINE GIVEN DAY KHANNA.
[2024-05-27] MEDS ORDERED: Potassium Chloride 100 ML IV SCH (03:30)
--- NOTE | 2024-05-27 03:30 | NUR ---
HOSPITALIST CAME BEDSIDE TO ASSESS PATIENT. ORDERS FOR CT NECK IN PLACE. COMPAZINE 5MG GIVEN
[2024-05-27] MEDS ORDERED: NS 1,000 ML IV SCH (03:45)
[2024-05-27] MEDS ORDERED: LORazepam 2 MG/ML 1 ML VIAL IV ONE (03:45)
--- NOTE | 2024-05-27 03:48 | NUR ---
0.5ML ATIVAN IV GIVEN PER VORB BY HOSPITALIST CLEMENCIA FOR ANXIETY. PATIENT OFF FLOOR FOT CT.
[2024-05-27] MEDS ORDERED: Iohexol 300 - 100 ML VIAL IV ONE (04:02)
--- NOTE | 2024-05-27 04:19 | NUR ---
PATIENT BACK FROM CT, AXO X4. IV POTASSIUM INITIATED RUNNING CONCURRENTLY WITH NS IVF,
--- NOTE | 2024-05-27 06:30 | NUR ---
patient refused morning meds, stated it will "get stuck."
[2024-05-27 06:43] LABS: COLLECTION METHOD CLEAN CATCH
[2024-05-27] MEDS ORDERED: Omeprazole 20 MG **** subs to Pantoprazole 40 MG PO SCH (07:00)
[2024-05-27] MEDS ORDERED: Isosorbide Mononitrate CR (24-HR) 30 MG TAB PO SCH (07:00)
--- NOTE | 2024-05-27 07:01 | NUR ---
PATIENT REFUSED 0700 MEDS. SHE STATED, "IT'LL GET STUCK." VS ARE CURRENTLY STABLE. TELE IS NS. PATIENT SLEEPING SUPINE CALL LIGHT WITHIN REACH.
[2024-05-27 07:04] LABS: PH 5.5 (5.0-8.5); URINE APPEARANCE CLEAR (CLEAR/HAZY); URINE BLOOD NEGATIVE (NEGATIVE); URINE COLOR YELLOW (YELLOW); URINE GLUCOSE 2+ (NEGATIVE); URINE KETONE TRACE (NEGATIVE); URINE NITRATE NEGATIVE (NEGATIVE); URINE PROTEIN(semi-quant) NEGATIVE (NEGATIVE); URINE UROBILINOGEN 0.2 E.U/dL (0.2-1.0)
[2024-05-27 07:16] LABS: BASO # 0.1 K/mm3 (0.0-0.2); BASO % 0.9 % (0.0-2.0); EOS # 0.2 K/mm3 (0.0-0.7); EOS % 2.7 % (0.0-4.0); GRAN # 3.2 K/mm3 (1.4-6.5); GRAN % 58.7 % (42.2-75.2); HEMOGLOBIN 11.7 g/dl (12.5-16.0); LYMPH # 1.4 K/mm3 (1.2-3.4); LYMPH % 25.5 % (20.0-51.0); MEAN CELL VOLUME 80 fl (80.0-100.0); MEAN CORPUSCULAR HEMOGLOBIN 25 pg (27-31); MEAN CORPUSCULAR HGB CONC 32 g/dl (33.0-37.0); MEAN PLATELET VOLUME 11.9 fl (7.4-10.4); MONO # 0.7 K/mm3 (0.1-0.6); PLATELET COUNT 252 K/mm3 (130-400); REDCELL DISTRIBUTION WIDTH-CV 14.3 % (11.5-14.5)
[2024-05-27 07:19] LABS: HEMATOCRIT 36.6 % (37.0-47.0)
[2024-05-27 07:32] LABS: CALCIUM 9.4 mg/dL (8.4-10.2); CREATININE, serum 0.99 mg/dL (0.57-1.11)
[2024-05-27 07:40] LABS: POTASSIUM 2.4 mEq/L (3.5-4.5)
[2024-05-27] MEDS ORDERED: Carvedilol 25 MG TAB PO SCH (08:00)
--- NOTE | 2024-05-27 08:35 | NUR ---
Assessment completed. Pt drowsy but arousable to voice stimuli. Answers questions appropriately but dozes off easily. On RA. MCOT on left chest wall. Reports chest pain 03/19. Paged Carmencita RN with cardiology. Fall precautions in place. and daughter at bedside. Morning medications held at this time due to patient drowsiness. Will wait until she is more alert before administering.
[2024-05-27] MEDS ORDERED: TOPAMAX50 MG (08:57)
[2024-05-27] MEDS ORDERED: BENTYL 20MG20 MG/TAB (08:58)
[2024-05-27] MEDS ORDERED: AMBIEN 5MG TABLE5 MG (08:59)
[2024-05-27] MEDS ORDERED: Empagliflozin 10 MG TAB PO SCH (09:00)
[2024-05-27] MEDS ORDERED: Sertraline 100 MG TAB PO SCH (09:00)
[2024-05-27] MEDS ORDERED: Pregabalin 75 MG CAP PO SCH (09:00)
[2024-05-27] MEDS ORDERED: Ferrous Sulfate 325 MG TAB PO SCH (09:00)
[2024-05-27] MEDS ORDERED: hydrALAZINE 25 MG TAB PO SCH (09:00)
[2024-05-27] MEDS ORDERED: amLODIPine 5 MG TAB PO SCH (09:00)
--- NOTE | 2024-05-27 09:01 | NUR ---
No return call from Carmencita Arcos RN at this time. Discussed chest pain with Dr. Negrete and DANNY Simpson student, who reports patient has long standing chest pain/discomfort. No new orders rec'd at this time.
--- NOTE | 2024-05-27 09:38 | NUR ---
DEDRA met with patient, her Joseph ([phone]) and daughter to complete initial assessment for discharge planning. Patient lives at home with her in [place], sees Ana Sen APRN as her PCP and uses [facility] in [place]. Patient reports her only DME is a cane. Patient denies having a DPOA but states she will think about completing one. Plan is for patient to return home when medically stable, Discharge plan: Home
--- NOTE | 2024-05-27 10:13 | NUR ---
Initial visit; Patient and her family ( and daughter) thanked Drive In [employer] Attendant for coming in to check on her and offer spiritual care. Patient and [employer] In [employer] discussed food high in Potassium which she said she tested low on. Zaida was very pleasant and asked that [employer] In Theater Attendant keep her in her prayers. Drive In Theater Attendant was glad to hear and will continue to check on Zaida.
[2024-05-27] MEDS ORDERED: Potassium Bicarbonate/Citrate 20 MEQ Effervescent TAB PO ONE (10:15)
[2024-05-27] MEDS ORDERED: Isosorbide Mononitrate CR (24-HR) 30 MG TAB PO ONE (10:30)
[2024-05-27] MEDS ORDERED: KLOR-CON20 MEQ PO (15:03)
--- NOTE | 2024-05-27 16:25 | NUR ---
Discharge instructions reviewed with patient- verbalizes understanding. INT d/c'd with cath tip intact. Tele d/c'd. Pt escorted via wheelchair to private vehicle and discharged home with her spouse.
== END 2024-05-27 16:25 | disposition home or self-care (01) ==
LOC: COL.ER 17:16 → MEDICAL 18:55
PROVIDERS: Nurse Practitioner Family; Physician Assistant; ADMIT Internal Medicine
DX: E87.6 Hypokalemia (principal); R13.10 Dysphagia, unspecified; I13.0 Hypertensive heart and chronic kidney disease with heart failure and stage 1 through stage 4 chronic kidney disease, or unspecified chronic kidney disease; I50.30 Unspecified diastolic (congestive) heart failure; E11.22 Type 2 diabetes mellitus with diabetic chronic kidney disease; E11.40 Type 2 diabetes mellitus with diabetic neuropathy, unspecified; D89.2 Hypergammaglobulinemia, unspecified; N18.31 Chronic kidney disease, stage 3a; D50.9 Iron deficiency anemia, unspecified; E03.9 Hypothyroidism, unspecified; K21.9 Gastro-esophageal reflux disease without esophagitis; F41.9 Anxiety disorder, unspecified; F32.A Depression, unspecified; Z79.890 Hormone replacement therapy; Z86.16 Personal history of COVID-19; Z79.899 Other long term (current) drug therapy; Z79.82 Long term (current) use of aspirin; Z79.84 Long term (current) use of oral hypoglycemic drugs
CPT/HCPCS: A9270; G0378; J0780; J2060; J3480; J7030; Q9967